=== PATIENT | female | born 2000 | race Caucasian/White ===

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

== ENCOUNTER 2022-07-05 16:40 | Outpatient (REF) | payer OTHER, SELFPAY ==
[2022-07-06 13:13] LABS: BV Int Neg Control Negative (Negative); BV Int Pos Control Positive (Positive)
== END 2022-07-05 16:41 | disposition home or self-care (01) ==
LOC: HO.LNP 16:40
PROVIDERS: Visit Provider Physician Assistant
DX: N89.8 Other specified noninflammatory disorders of vagina (principal); R82.90 Unspecified abnormal findings in urine
CPT/HCPCS: 87480; 87510; 87660

== ENCOUNTER 2022-10-25 09:24 | Outpatient (REF) | payer OTHER, SELFPAY ==
[2022-10-25 13:59] LABS: Influenza A PCR POSITIVE (Negative); Influenza B PCR NEGATIVE (Negative); Resp Syncy Virus RNA Qual PCR NEGATIVE (Negative); SARS COV2 PCR INHOUSE NEGATIVE (Negative)
== END 2022-10-25 09:25 | disposition home or self-care (01) ==
LOC: HO.LAB 09:24
PROVIDERS: Visit Provider Physician Assistant
DX: R09.89 Other specified symptoms and signs involving the circulatory and respiratory systems (principal); Z20.822 Contact with and (suspected) exposure to COVID-19
CPT/HCPCS: 0241U

== ENCOUNTER 2023-07-26 15:48 | Outpatient (AMB) | payer OTHER, SELFPAY ==
--- NOTE | 2023-07-26 15:50 | A.OFFPC_ITS ---
Vital Signs 07/26/23 15:51 Height 5 ft 3.19 in Weight 109 lb BMI 19.2 BP 110/72 Blood Pressure Location Lt brachial Position Sitting Pulse 74 Pulse Source Pulse Oximeter Temp Source Skin Pulse Oximetry (%) 98 Oxygen Delivery Method Room Air Intake Visit Reasons: New Patient/ Req Physical Intake Note: Patient is a new patient here to establish care Carpenter Assistant Installer Required: No Allergies No Known Allergies Allergy (Verified 07/26/23 16:00) Medication List - Last Reconciled 07/26/23 by CANDICE Corona No Known Home Meds Tobacco use date assessed: 07/26/23 Dental Screening Dental Screen Date: 07/26/23 Did you have a dental visit in the last 12 months?: Yes Did you have a dental problem in the last 6 months where you did not have access to dental care?: No Was dental information given to patient?: Patient has dentist HPI New Patient/ Req Physical HPI Details Patient is a 22-year-old female who presents today for physical exam as a new patient. Previous PCP ROZ Montalvo at [facility]. No past medical history. Patient reports dental visit in the past year. Mother reports that they will be calling [facility] for an appointment, patient will need to have Pap smear soon. Patient denies shortness of breath or chest pain. Denies any concerns today. Up-to-date with tetanus vaccine. Patient graduated high school last year and she lives with her mother Leigh. [facility] Medical History Headache Right flank pain No pertinent past medical history Surgical History No pertinent past surgical history Family History Father No problems noted. Mother Asthma Social History Household Members: Family Both parents involved: Yes Housing: House Patient Tobacco Use Status: Never used Tobacco service: No Cognitive needs: No Hearing needs: No Vision needs: No Questionnaire PHQ-9 Over the last 2 weeks, how often have you been bothered by any of the following problems? 1. Little interest or pleasure in doing things: not at all 2. Feeling down, depressed, or hopeless: not at all 3. Trouble falling or staying asleep, or sleeping too much: not at all 4. Feeling tired or having little energy: not at all 5. Poor appetite or overeating: not at all 6. Feeling bad about yourself - or that you are a failure or have let yourself or your family down: not at all 7. Trouble concentrating on things, such as reading the newspaper or watching television: not at all 8. Moving or speaking so slowly that other people could have noticed. Or the opposite - being so fidgety or restless that you have been moving around a lot more than usual: not at all 9. Thoughts that you would be better off or of hurting yourself in some way: not at all Total score: 0 Depression Screening Interpretation: Negative 38951 - PHQ-9 Billing: Yes Source: Developed by Drs. Chaz Man, Shoshana Montalvo, Nguyễn Cool and colleagues, with an educational luke from [employer]. Thrive Questionnaire Date Thrive assessed: 07/26/23 I am a: Patient What is your living situation today?: I have a steady place to live Within the past 12 months, did the food you bought not last and you didn't have the money to get more?: Never true Within the past 12 months, did you worry whether your food would run out before you got money to buy more?: Never true Currently or been in a relationship where the following occur: no concerns reported AUDIT C Alcohol Use Questionnaire (AUDIT-C) 1. How often do you have a drink containing alcohol?: Never 3. How often do you have six or more drinks on one occasion?: Never Total Score: 0 Score Reviewed/Action Taken: No СЕРГЕЙ-7 AMB Questionnaire СЕРГЕЙ-7 Date СЕРГЕЙ - 7 assessed: 07/26/23 Feeling nervous, anxious, or on edge: 0 = Not at all Not being able to stop or control worryin = Not at all Worrying too much about different things: 0 = Not at all Trouble relaxin = Not at all Being so restless that it is hard to sit still: 0 = Not at all Becoming easily annoyed or irritable: 0 = Not at all Feeling afraid as if something awful might happen: 0 = Not at all Total СЕРГЕЙ-7 score (0-4 normal; 5-9 mild; 10-14 moderate; 15-21 severe): 0 Source: Developed by Drs. Chaz Man, Shoshana Montalvo, Nguyễn Cool and colleagues, with an educational luke from [employer]. СЕРГЕЙ-7 Assessment Billing СЕРГЕЙ-7 Assessment Tool: СЕРГЕЙ-7 Assessment 48817 Review of Systems Const Denies body aches, Denies chills, Denies fever(s) and Denies headache(s) Eyes Denies change in vision ENT Denies dizziness, Denies otalgia, Denies headache(s), Denies nasal discharge, Denies sinus pain and Denies sore throat Card Denies chest pain, Denies lightheadedness and Denies dyspnea Resp Denies dyspnea and Denies wheezing GI Denies abdominal pain Denies dysuria Musc Denies myalgias Skin/Breast Denies rash Neuro Denies dizziness and Denies headache(s) Aller/Immun Denies wheezing Physical exam (Primary Care) Vital Signs: Last Vital Signs Pulse 74 07/26/23 15:51 BP 110/72 07/26/23 15:51 Pulse Ox 98 07/26/23 15:51 Oxygen Delivery Method Room Air 07/26/23 15:51 BMI result Body Mass Index 19.2 Tobacco/Smoking Status: Tobacco use Status Tobacco use date assessed 07/26/23 07/26/23 15:57 Patient Tobacco Use Status Never used Tobacco 07/26/23 15:57 PHQ-9: PHQ-9 Score PHQ-9: Total score 0 07/26/23 15:57 Depression Screening Interpretation: Negative Thrive Assessment: Date of Thrive Assessment Date Thrive assessed 07/26/23 07/26/23 15:57 Currently or been in a relationship where the following occur: no concerns reported Const General: cooperative and no acute distress Orientation/consciousness: patient oriented x3 HENMT Head: Yes normocephalic and Yes atraumatic Ears: TM's normal bilaterally Face and sinus: Yes sinuses nontender Mouth: oropharynx normal and moist mucous membranes Throat: Yes posterior oropharynx normal Eyes General: appearance normal, both eyes and all related structures Pupils: Equal, round and reactive pupils present EOM: EOMs intact bilaterally Neck Neck: Yes normal visual inspection, Yes full ROM and Yes no lymphadenopathy Thyroid: Thyroid normal Resp Effort & Inspection: normal respiratory effort and able to speak in complete sentences Auscultation: clear to auscultation bilaterally, no crackles, no rales, no rhonchi and no wheezes Cardio Rate: regular rate Rhythm: regular rhythm Heart sounds: S1 normal heart sound present, S2 normal heart sound present and no murmurs GI Palpation (GI): Soft to palpation, not firm, nontender, no guarding, not rigid and no hepatosplenomegaly Auscultation: normal bowel sounds General: No CVA tenderness Back/Spine/Pelvis Back: No CVA tenderness Skin General skin exam: no rashes or lesions noted Neuro General: patient oriented x3 Cranial nerves: Yes Equal, round and reactive pupils present Gait exam (Neuro): Normal gait present Extrem General: Yes full ROM and No edema Assessment and Plan Assessment & Plan (1) Adult general medical exam: Code(s): Z00.00 - Encounter for general adult medical examination without abnormal findings Plan: Repeat in 1 year Blood work ordered Orders: Orders Vitamin D 25-OH Total Today Z00.00 - Encounter for general adult medical examination without abnormal findings TSH reflex Free T4 Today Z00.00 - Encounter for general adult medical examination without abnormal findings Comprehensive Met. Panel Today Z00.00 - Encounter for general adult medical examination without abnormal findings Complete Blood Count Auto Diff Today Z00.00 - Encounter for general adult medical examination without abnormal findings Vitamin B12 and Folate Today Z00.00 - Encounter for general adult medical examination without abnormal findings Coding Level of Care Code New Pt Prev Care 18-39yr(64562 Diagnoses Adult general medical exam Z00.00 Additional Codes СЕРГЕЙ-7 Assessment Billing - СЕРГЕЙ-7 Assessment Tool: СЕРГЕЙ-7 Assessment 55075 ([id number])
[2023-07-26 15:51] VITALS: BP 110/72; PULSE 74; O2SAT 98; BMI 19.2
== END 2023-07-26 16:12 | disposition home or self-care (01) ==
PROVIDERS: PCP Nurse Practitioner Family; Visit Provider Nurse Practitioner Family
DX: Z00.00 Encounter for general adult medical examination without abnormal findings (principal)
CPT/HCPCS: 99385

== ENCOUNTER 2024-06-21 10:26 | Outpatient (AMB) | payer OTHER, SELFPAY ==
[2024-06-21 10:43] VITALS: BP 106/70; PULSE 83; O2SAT 99; BMI 18.3
--- NOTE | 2024-06-21 10:43 | A.OFFPC_ITS ---
Vital Signs 06/21/24 10:43 Height 5 ft 3.19 in Weight 104 lb 0.2 oz BMI 18.3 BP 106/70 Blood Pressure Location Lt brachial Position Sitting Pulse 83 Pulse Source Pulse Oximeter Pulse Oximetry (%) 99 Oxygen Delivery Method Room Air Intake Visit Reasons: physical Director Internal Control Required: No Allergies No Known Allergies Allergy (Verified 06/21/24 11:02) Medication List - Last Reconciled 06/21/24 by Blanca Velazquez PA-C No Known Home Meds Tobacco use date assessed: 06/21/24 Dental Screening Dental Screen Date: 06/21/24 Did you have a dental visit in the last 12 months?: Yes Did you have a dental problem in the last 6 months where you did not have access to dental care?: No Was dental information given to patient?: Patient has dentist HPI physical HPI Details 23 year old female with no medical histo ry last seen by EXTENDED INSURANCE CLERK 07/2023 coming in for annual visit. Patient does not currently follow with routine pap smears through hang gliding instructor and has not been to see an eye doctor. She has no acute concerns today. ON LICENSE OF [facility] Medical History (Updated 06/21/24 @ 11:10 by Blanca Velazquez PA-C) Headache Right flank pain No pertinent past medical history Surgical History No pertinent past surgical history Family History (Updated 06/21/24 @ 11:04 by Blanca Velazquez PA-C) Father No problems noted. Mother Asthma Maternal Grandfather Colon cancer Maternal Grandmother Breast cancer Paternal Grandmother Heart attack Social History Household Members: Family Both parents involved: Yes Housing: House Patient Tobacco Use Status: Never used Tobacco service: No Cognitive needs: No Hearing needs: No Vision needs: No Female Reproductive History Menstrual control method: none History of abnormal pap smear: No Questionnaire PHQ-9 Over the last 2 weeks, how often have you been bothered by any of the following problems? 1. Little interest or pleasure in doing things: several days 2. Feeling down, depressed, or hopeless: not at all 3. Trouble falling or staying asleep, or sleeping too much: several days 4. Feeling tired or having little energy: several days 5. Poor appetite or overeating: not at all 6. Feeling bad about yourself - or that you are a failure or have let yourself or your family down: several days 7. Trouble concentrating on things, such as reading the newspaper or watching television: not at all 8. Moving or speaking so slowly that other people could have noticed. Or the opposite - being so fidgety or restless that you have been moving around a lot more than usual: not at all 9. Thoughts that you would be better off or of hurting yourself in some way: not at all Total score: 4 Depression Screening Interpretation: Positive Depression Screening Done: Yes [id number] - PHQ-9 Billing: Yes Source: Developed by Drs. Chaz Man, Shoshana Montalvo, Nguyễn Cool and colleagues, with an educational luke from [employer]. Thrive Questionnaire Date Thrive assessed: 07/26/23 AUDIT C Alcohol Use Questionnaire (AUDIT-C) 1. How often do you have a drink containing alcohol?: Never 3. How often do you have six or more drinks on one occasion?: Never Total Score: 0 Score Reviewed/Action Taken: No СЕРГЕЙ-7 AMB Questionnaire СЕРГЕЙ-7 Date СЕРГЕЙ - 7 assessed: 06/21/24 Feeling nervous, anxious, or on edge: 0 = Not at all Not being able to stop or control worryin = Not at all Worrying too much about different things: 0 = Not at all Trouble relaxin = Not at all Being so restless that it is hard to sit still: 0 = Not at all Becoming easily annoyed or irritable: 0 = Not at all Feeling afraid as if something awful might happen: 0 = Not at all Total СЕРГЕЙ-7 score (0-4 normal; 5-9 mild; 10-14 moderate; 15-21 severe): 0 Source: Developed by Drs. Chaz Man, Nguyễn Wilson and colleagues, with an educational luke from [employer]. СЕРГЕЙ-7 Assessment Billing СЕРГЕЙ-7 Assessment Tool: СЕРГЕЙ-7 Assessment 08369 Review of Systems Const Denies body aches, Denies fatigue, Denies fever(s), Denies frequent falls, Reports headache(s) (occasional) and Denies weakness Eyes Reports no additional complaints and Denies change in vision ENT Denies dysphagia, Denies dizziness, Denies facial pain, Reports headache(s) (occasional), Denies nasal congestion and Denies odynophagia Card Denies chest pain, Denies syncope, Denies irregular heart rhythm, Denies leg edema, Denies lightheadedness and Denies dyspnea Resp Denies cough and Denies dyspnea GI Denies constipation, Denies dysphagia, Denies dyspepsia, Denies diarrhea, Denies nausea, Denies odynophagia and Denies vomiting Denies urinary frequency, Denies dysuria, Denies urinary hesitancy and Denies urinary urgency Musc Denies back pain and Denies myalgias Skin/Breast Reports system reviewed and no additional complaints, except as documented Neuro Denies dizziness, Denies syncope, Denies frequent falls, Reports headache(s) (occasional) and Denies weakness Psych Reports no additional complaints Endo Denies fatigue Physical exam (Primary Care) Vital Signs: Last Vital Signs Pulse 83 06/21/24 10:43 BP 106/70 06/21/24 10:43 Pulse Ox 99 06/21/24 10:43 Oxygen Delivery Method Room Air 06/21/24 10:43 BMI result Body Mass Index 18.3 Tobacco/Smoking Status: Tobacco use Status Tobacco use date assessed 06/21/24 06/21/24 10:48 Patient Tobacco Use Status Never used Tobacco 06/21/24 10:43 Depression Screening Interpretation: Positive Thrive Assessment: Date of Thrive Assessment Date Thrive assessed 07/26/23 06/21/24 10:43 Const General: cooperative, healthy appearing, comfortable and no acute distress Orientation/consciousness: patient oriented x3 [facility] Head: Yes normocephalic Ears: hearing grossly normal bilaterally, external ears normal, TM's normal bilaterally and EAC's normal General nose exam: Normal external nose present Face and sinus: Yes normal facial exam and Yes sinuses nontender Mouth: Normal oral and palatal mucosa present and tongue normal Throat: Yes posterior oropharynx normal Eyes General: appearance normal, both eyes and all related structures Conjunctivae: conjunctivae normal Pupils: Equal, round and reactive pupils present EOM: EOMs intact bilaterally and No Nystagmus present Neck Neck: Yes normal visual inspection, Yes full ROM and Yes no lymphadenopathy Chest Chest palpation & inspection: normal inspection of the chest Resp Effort & Inspection: normal respiratory effort Auscultation: clear to auscultation bilaterally, no crackles, no rales, no rhon chi, no wheezes and breath sounds present Cardio Rate: regular rate Rhythm: regular rhythm Peripheral pulses: radial pulses present and dorsalis pedis present GI Inspection: Yes normal to inspection and No Abdominal wall edema Palpation (GI): Soft to palpation, not firm and nontender Auscultation: normal bowel sounds Rectal Exam - Female: deferred General: Yes no CVA tenderness Back/Spine/Pelvis Back: no CVA tenderness Skin General skin exam: no rashes or lesions noted Neuro General: patient oriented x3 Cranial nerves: Yes Equal, round and reactive pupils present, Yes Midline tongue present, Yes Ability to bilaterally elevate shoulders present and No Nystagmus present Gait exam (Neuro): Normal gait present Extrem General: Yes normal to inspection, Yes full ROM, No no pedal edema and No edema Psych Speech and movement: Normal speech and movement present Affect: normal affect Insight: Good insight present (Psych) Judgement: Good judgement present (Psych) Assessment and Plan Assessment & Plan (1) Annual physical exam: Code(s): Z00.00 - Encounter for general adult medical examination without abnormal findings Plan: Patient is up-to-date on all routine vaccinations for age. Referral to gynecology placed for routine Pap smears. Routine blood work ordered. Follow up in 1 year or sooner if any acute problems arise. Patient did score positive PHQ-9 screening however states she has no concerned about depression and has declined a counselor at. Plan This note was constructed using voice recognition software. While every effort has been made to ensure accuracy and tissue rewinder, still areas may have been included sometimes these areas may affect the content or meeting of the given symptoms. Total time spent caring for the patient today was 35 minutes. This includes time spent before the visit reviewing the chart, time spent during the visit, and time spent after the visit and documentation. Orders: Orders Complete Blood Count Auto Diff Today Z00.00 - Encounter for general adult medical examination without abnormal findings Comprehensive Met. Panel Today Z00.00 - Encounter for general adult medical examination without abnormal findings Free T4 (Free Thyroxine) Today Z00.00 - Encounter for general adult medical examination without abnormal findings TSH reflex Free T4 Today Z00.00 - Encounter for general adult medical examination without abnormal findings Vitamin B12 and Folate Today Z00.00 - Encounter for general adult medical examination without abnormal findings Vitamin D 25-OH (D2 and D3) Today Z00.00 - Encounter for general adult medical examination without abnormal findings Referrals DATA CONVERSION DEVELOPER Referral Z00.00 - Encounter for general adult medical examination without abnormal findings Optometry Referral Z00.00 - Encounter for general adult medical examination without abnormal findings Coding Level of Care Code Est Pt Prev Care 18-39y(05825) Diagnoses Annual physical exam Z00.00 Additional Codes СЕРГЕЙ-7 Assessment Billing - СЕРГЕЙ-7 Assessment Tool: СЕРГЕЙ-7 Assessment 24947 ([id number])
== END 2024-06-21 11:33 | disposition home or self-care (01) ==
LOC: HO.HMGH 10:26
DX: Z00.00 Encounter for general adult medical examination without abnormal findings (principal)
CPT/HCPCS: 99395

== ENCOUNTER 2025-09-25 13:07 | Outpatient (REF) | payer OTHER, SELFPAY ==
[2025-09-27 10:25] LABS: Bacterial Vaginosis PCR POSITIVE (Negative); Candida Group PCR NOT DETECTED (Not Detect); Candida glab krusei PCR NOT DETECTED (Not Detect); Trichomonas vaginalis PCR NOT DETECTED (Not Detect)
[2025-09-27 10:47] LABS: CT PCR NOT DETECTED (Not Detect.); NG PCR NOT DETECTED (Not Detect.)
== END 2025-09-25 13:08 | disposition home or self-care (01) ==
LOC: HO.LNP 13:07
PROVIDERS: Visit Provider Advanced Practice Midwife
DX: Z01.419 Encounter for gynecological examination (general) (routine) without abnormal findings (principal); Z20.2 Contact with and (suspected) exposure to infections with a predominantly sexual mode of transmission
CPT/HCPCS: 81515; 87491; 87591; 88175; 99385

== ENCOUNTER 2025-09-25 13:07 | Outpatient (AMB) | payer OTHER, SELFPAY ==
--- NOTE | 2025-09-25 13:08 | A.OFFVIS_ITS ---
Vital Signs 09/25/25 13:14 Height 5 ft 3 in Weight 122 lb BMI 21.6 BP 116/66 Intake Visit Reasons: New patient Annual Intake Note: Per patient has never seen a SENIOR ELECTRICAL ENGINEER before, this will be her first time. No complains. Oxygen Equipment Technician: Oxygen Equipment Technician Present (Rachael) Accompanied by: Self / Same As Patient Allergies No Known Allergies Allergy (Verified 09/25/25 13:11) Medication List - Last Reconciled 09/25/25 by Nickie Zaidi CNM No Known Home Meds Is last menstrual period known: Yes Last menstrual period: 09/18/25 Post menopausal: No Patient : No HPI HPI New patient Annual: Details: Patient is here for her 1st ob/gyn nurse annual exam and she is a little bit nervous. Her last menstrual period was September 14 to September 18. She is involved with her boyfriend and she says things are very good and they have decided to be open to what ever happens in terms of conception. So they are sexually active and not contracepting. She tries to eat healthy she works out in a gym with her boyfriend about 3 or 4 times a week. Sometimes she takes vitamins sometimes not. She has no health concerns that she is aware of. She lives with her parents. 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 [facility] Medical History Headache Right flank pain No pertinent past medical history Surgical History No pertinent past surgical history Family History Father No problems noted. Mother Asthma Maternal Grandfather Colon cancer Maternal Grandmother Breast cancer Paternal Grandmother Heart attack Social History (Updated 09/25/25 @ 13:12 by Rachael Andrade MA) Household Members: Family Both parents involved: Yes Housing: House Patient Tobacco Use Status: Never used Tobacco service: No Current occupational status: employed Current occupation: [employer] Cognitive needs: No Hearing needs: No Vision needs: No Female Reproductive History Menstrual Age of Menarche: 14 Duration of menses: 3-5 days Date of last menstrual period: 09/18/25 control method: none Total pregnancies: 0 Physical Exam Vital Signs: Last Vital Signs BP 116/66 09/25/25 13:14 BMI result Body Mass Index 21.6 Const General: healthy appearing, comfortable, no acute distress, well developed and alert Nutritional Appearance: average body habitus Orientation/consciousness: patient oriented x3 Limitations: no limitations HEENT Head: Yes normocephalic Neck Neck: Yes normal visual inspection Chest Chest palpation & inspection: normal inspection of the chest Breast/axilla inspection: normal inspection of the breasts and normal inspection of the axillae Breast/axilla palpation: normal palpation of the breasts and normal palpation of the axillae Resp Effort & Inspection: normal respiratory effort GI Inspection: Yes normal to inspection, No Abdominal wall edema and No distended Palpation (GI): Soft to palpation and nontender Other: External exam within normal limits vagina is pink and moist and well-rugated cervix is nulliparous and gaping with clear mucus consistent with circa ovulation. Cervix is long close thick mobile nontender very posterior uterus midposition mobile nontender adnexa nontender patient unable to recreate a Kegel but she has good muscle tone. General: Yes bladder normal to palpation External Female Exam: normal external appearance and normal appearance of the urethra Speculum Exam - Vagina: normal appearance of the vagina, normal palpation and normal vaginal discharge Speculum Exam - Cervix: normal appearance of the cervix, normal palpation and nontender Bimanual exam- vagina & uterus: normal bimanual exam, normal palpation, uterine size normal, bladder normal to palpation, consistency normal, normal palpation, uterine mobility normal, uterine shape normal, No Cervical tenderness present, non-tender and no cervical motion tenderness Bimanual Exam- Adnexa, other: normal adnexae, no masses, normal and No adnexal tenderness Neuro General: patient oriented x3 Assessment & Plan Assessment & Plan (1) Well woman exam with routine gynecological exam: Code(s): Z01.419 - Encounter for gynecological examination (general) (routine) without abnormal findings Category: Medical (2) Cervical cancer screening: Code(s): Z12.4 - Encounter for screening for malignant neoplasm of cervix Category: Medical (3) Screen for sexually transmitted diseases: Code(s): Z11.3 - Encounter for screening for infections with a predominantly sexual mode of transmission Category: Medical Plan -----Discussed in this visit the following: healthy balanced diet, regular and consistent exercise, getting recommended health screens, doing the best she can for her particular health concerns, kegel exercises, pap smear screening and followup recommendations, mammography screening and SBE, normal changes in cycles in her life stage--- . At this visit Pap smear was done as well as testing for gonorrhea chlamydia trichomoniasis Gardnerella and bacterial vaginosis. We will let her know if anything is positive. She declined blood work for STIs thinking she does not need any discussed that if she does get they would be done at the beginning of any care wherever she would be going. She her parents in [place]. Discussed that currently [facility] is the only place in the [facility] that is open for care for women delivering babies discussed that while we can provide care here we would not be the team involved caring for her in labor and for a 1st she would be much better served by initiating care with the team that she would intend to stay with for the entire and delivery for continuity of care as there were many questions and issues that come up. Discussed considering taking a multivitamin with folic acid if she is open to . Discussed that she seems to be in a good place with being as healthy as she can be exercising eating well taking care of herself and feeling that she is in a good stable relationship. Discussed the benefits of keeping track of her cycle and where she is in her cycle. Discussed the Pap smears would be done every 3 years in her 20s. We recommend coming back every year, but if she does not come back for 3 years she might be considered a new patient. Coding Level of Care Code New Pt Prev Care 18-39yr([id number] Diagnoses Well woman exam with routine gynecological exam Z01.419 Cervical cancer screening Z12.4 Screen for sexually transmitted diseases Z11.3
[2025-09-25 13:14] VITALS: BP 116/66; BMI 21.6
--- OUTSIDE RECORDS SUMMARY | 2025-09-25 16:25 | XMS_ITS | Clinical Summary ---
Author Organization [facility] 's Address [address] [place] [address] Care Team Providers Care Supply Specialist Name Role Phone Parul Montalvo Primary Care Provider Source Comments Please note that some or all of the patient's information could have additional privacy protections. State laws allow health care providers to render certain types of treatment to minors without parental consent. Please do not assume that this information can be shared solely by obtaining just the consent of the patient's parent/guardian. Please determine if all or part of the patient's care was rendered without parent/guardian involvement. And, if so, obtain the minor's consent prior to disclosure.[facility] Allergies No known active allergies Medications amitriptyline (ELAVIL) 25 MG tabletIndication s:Post concussion syndrome Take 1 at bedtime; 60 tablet 1 05/15/2018 Active Active Problems Problem Noted Date Diagnosed Date Post concussion syndrome 05/15/2018 Primary insomnia 05/15/2018 Social History Tobacco Use Types Packs/Day Years Used Date Smoking Tobacco: Never Comments Unknown Sex and Gender Information Value Date Recorded Sex Assigned at Not on file Legal Sex Female 3:01 PM EST Gender Identity Not on file Sexual Orientation Not on file Last Filed Vital Signs Vital Sign Reading Time Taken Comments Blood Pressure - - Pulse - - Temperature - - Respiratory Rate - - Oxygen Saturation - - Inhaled Oxygen Concentration - - Weight 46.9 kg (103 lb 6.3 oz) 05/15/2018 2:07 P M EDT Height 159.3 cm (5' 2.7 ) 05/15/2018 2:07 PM EDT Body Mass Index 18.49 05/15/2018 2:07 PM EDT Plan of Treatment Health Maintenance Due Date Last Done Comments DTaP/TDAP/TD VACCINES (1 - Tdap) 2009 ADOLESCENT HIV SCREENING 2015 COVID-19 Vaccine (2023-2 5 season) 2025 INFLUENZA (#1) 2025 NIRSEVIMAB VACCINES UNDER 8 MONTHS Aged Out No longer eligible based on patient's age to complete this topic Insurance GENERIC MEDICAID (NON-CT) Care Teams Supply Specialist Relationship Specialty Start Date End Date Parul Montalvo PA [address] [place] [address] [address] [place] [id number] PCP - General 01/04/18
--- OUTSIDE RECORDS SUMMARY | 2025-09-25 16:25 | XMS_ITS | Clinical Summary ---
Author Organization [facility] ity Address [address] [place] [address] Care Team Providers Care Balloon Dipper Name Role Phone Unavailable Primary Care Provider Unavailabl e Social History Tobacco Use Types Packs/Day Years Used Date Smoking Tobacco: Never Assessed Comments Unknown Sex and Gender Information Value Date Recorded Sex Assigned at Not on file Legal Sex Female 10:06 AM EST Gender Identity Not on file Sexual Orientation Not on file Plan of Treatment Health Maintenance Due Date Last Done Comments Gonorrhea/Chlamydia Screening 2002 HPV Vaccines (1 - 3-dose series) 2017 Meningococcal B Vaccine (1 o f 2 - Standard) 2018 DTaP,Tdap,and Td Vaccines (1 - Tdap) 2021 Hepatitis B Vaccines (1 of 3 - 19+ 3-dose series) 2021 Cervical Cancer Screening: P ap Smear 2023 Depression Screening 11/13/2024 COVID-19 Vaccine (1 - 2024-2 6 season) 2025 Influenza Vaccine (#1) 2025 RSV Immunization Adult Patie nts (1 - 1-dose 75+ series) 2077 HIB Vaccines Aged Out No longer eligi ble based on patient's age to complete this topic Hepatitis A Vaccines Aged Out No long er eligible based on patient's age to complete this topic IPV Vaccines Aged Out No longer eligi ble based on patient's age to complete this topic MMR Vaccines Aged Out No longer eligi ble based on patient's age to complete this topic Meningococcal ACWY Vaccine Aged Out N o longer eligible based on patient's age to complete this topic Pneumococcal Vaccine: Pediat rics (0 to 5 Years) and At-Risk Patients (6 to 49 Years) Aged Out No longer eligible b ased on patient's age to complete this topic RSV Immunization Patients Un jaqui 20 months Aged Out No longer eligible b ased on patient's age to complete this topic Varicella Vaccines Aged Out No longer eligible based on patient's age to complete this topic
== END 2025-09-25 14:54 | disposition home or self-care (01) ==
LOC: HO.HWSM 13:07
PROVIDERS: Visit Provider Advanced Practice Midwife
DX: Z01.419 Encounter for gynecological examination (general) (routine) without abnormal findings (principal); Z12.4 Encounter for screening for malignant neoplasm of cervix; Z11.3 Encounter for screening for infections with a predominantly sexual mode of transmission
CPT/HCPCS: 99385; 99459

== ENCOUNTER 2025-09-26 13:58 | Outpatient (REF) | payer OTHER, SELFPAY ==
--- OUTSIDE RECORDS SUMMARY | 2025-09-26 20:52 | XMS_ITS | Clinical Summary ---
Author Organization [facility] 's Address [address] [place] [address] Care Team Providers Care Director Security Management Name Role Phone Parul Montalvo Primary Care [...] so, obtain the minor's consent prior to disclosure.[facility] Allergies No known active allergies Medications [...] topic Insurance GENERIC MEDICAID (NON-CT) Care Teams Director Security Management Relationship Specialty Start Date End Date Parul Montalvo PA [address] [place] [address] [address] [place]OU[place]AS [place] [id number] PCP - General 01/04/18
--- OUTSIDE RECORDS SUMMARY | 2025-09-26 20:52 | XMS_ITS | Clinical Summary ---
Author Organization [facility] ity Address [address] [place] [address] Care Team Providers Care Canteen Manager Name Role Phone Unavailable Primary Care Provider [...]
== END 2025-09-26 13:59 | disposition home or self-care (01) ==
LOC: HO.LNP 13:58
PROVIDERS: Visit Provider Advanced Practice Midwife
DX: Z13.89 Encounter for screening for other disorder (principal)